=== PATIENT | male | born 1975 ===

== ENCOUNTER 2021-12-20 09:26 | Emergency (ER) | payer OTHER, BC, SELFPAY ==
[2021-12-20] VITALS (12 sets, daily range): BP systolic 131–141; BP diastolic 76–84; PULSE 62–74; RESP 16; TEMP 36.3; O2SAT 94–98; BMI 31.9
--- NOTE | 2021-12-20 09:42 | ED_ITS ---
HPI - Fall General Time Seen by Provider: 09:43 Date Seen: 12/20/21 Chief Complaint: Fall/Minor Trauma Stated Complaint: Fell appx 8 feet, hurt back and right side Time Seen by Provider: 12/20/21 09:41 Source: patient and RN notes reviewed Mode of arrival: ambulatory Limitations: no limitations History of Present Illness HPI Narrative: Patient is a 46-year-old male coming into the ER ambulatory of his own accord. Upon my initial interview with him, did ask staff to do an internal TTA which we did observe. 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 He fell off the bed of the truck landing on his right side on the ramp and then down to the ground landing more on his back. He notes his right elbow was swollen when he got home, hurts to move. He is also having pain in his left buttock/hip area with walking. If he tries to bear full weight it hurts on that right side and he gets sharp pain. The pain is not go ing down the leg at all. Does not seem to emanate from the central back. He states he did not hit his head, no loss of consciousness. He is having no headache, no visual changes. No neck pain, no back pain. No difficulty breathing, no shortness of breath, no chest pain or chest wall pain. No abdominal pain. There is no pain in his left extremities. She has maybe a little right shoulder pain. He did take some Tylenol when he got home this morning. It is primarily the elbow and this right buttock/hip pain with ambulation that brought him in. He is not on any blood thinners. He states the right arm felt numb and tingly initially after the injury but that has resolved. complaint: fall Onset (ago): hour(s) Location of injury - extremities: Right: shoulder and elbow Related Data Home Medications Medication Instructions Recorded Confirmed No Known Home Medications 12/20/21 12/20/21 Allergies Allergy/AdvReac Type Severity Reaction Status Date / Time No Known Drug Allergies Allergy Verified 12/20/21 09:39 Review of Systems Status of ROS: Reports: 10 or more systems reviewed and unremarkable except as noted in History and below PFSH PFSH Social History Smoking Status: Never smoker Do you use any of these nicotine containing products: None Second hand tobacco smoke exposure: No How often do you have a drink containing alcohol: monthly or less How often do you have six or more drinks on one occasion: Less than monthly AUDIT-C Alcohol total score: 2 Non-prescribed substance use: denies use service: No Exam Narrative: Exam Narrative: After some of my initial history taking, called nursing staff in to do an internal TTA. Patient was fully disrobed. IA initially assessed him to have a GCS 15/15, went on with my a history taking as well as into the secondary survey. Patient was able to fully extend his arms up over his head to take off his T-shirt. He did have difficulty attempting to try to untie issues as bending forward bothered him in this right buttock/pelvic area. He was able to stand. Const: Vital Signs, click to edit/add: Vital Signs - 24 hr 12/20/21 09:36 Temperature 97.4 F L Pulse Rate [Left P ulse Oximeter] 74 Respiratory Rate 16 Blood Pressure [Ri ght Upper Arm] 131/84 Pulse Oximetry 96 Oxygen Delivery Me thod Room Air Documenting provider has reviewed patient's vital signs: yes Common normals: no apparent distress, average body habitus, oriented x3, no limitations, healthy appearing and alert General appearance: cooperative, comfortable (Except did seem to have some discomfort in attempting to take his shoes off) and well kempt HENMT: Common normals: normocephalic, head/scalp atraumatic, hearing grossly normal bilaterally, external ears normal, external nose normal, nasal mucous membranes and turbinates normal, moist oral mucous membranes, oropharynx normal, dentition normal and gingiva normal Head and scalp: normocephalic and atraumatic Nose: external nose normal and nasal mucous membranes and turbi nates normal External ear: external ears normal Eye: Common normals: PERRL, EOMs intact bilaterally, conjunctivae normal and no scleral icterus Conjunctiva: conjunctiva(e) normal Pupil: PERRL Neck & C-Spine: Common normals: full ROM (No midline cervical spine tenderness, no paraspinous tenderness), no lymphadenopathy, supple, no meningeal signs, no JVD, thyroid normal and no carotid bruits Thyroid: thyroid normal Chest: Common normals: inspection of chest normal and palpation of chest normal Other: Initially in his history stated he was having no chest wall pain. However, when I was examining his right shoulder did start to complain of some right anterior chest wall pain after the fact. Repalpated the area and he stated there was a little discomfort. There is no crepitus no step-off, no visible bruising or skin changes. Resp: Common normals: normal respiratory effort, no retractions, no use of accessory muscles and clear to auscultation bilaterally Auscultation: clear to auscultation bilaterally Cardio: Common normals: no JVD, regular rate, regular rhythm, S1 normal heart sound, S2 normal heart sound, no gallops, no clicks and no murmurs Rate: regular rate Rhythm: regular rhythm Heart sounds: S1 normal and S2 normal GI: Common normals: Normal to inspection, nondistended, normoactive bowel sounds present, soft to palpation, non-tender, no hepatosplenomegaly and no masses Palpation: soft and no hepatosplenomegaly : Common normals: no CVA tenderness Bladder/kidney exam: no CVA tenderness Back & Pelvis: Common normals: no CVA tenderness, thoracic and lumbar spine normal to inspection and no thoracic nor lumbar tenderness Extremity: Other: He has no tenderness over the clavicle, no tenderness over the glenohumeral joint on palpation and does have good range of motion of her shoulder although he states it feels a little sore. His right elbow definitely has some edematous changes laterally. He is tender over the lateral epicondyle, maybe some over the olecranon. Still has so good supination pronation and flexion extension of the right elbow although he states it is painful. There is no pain into the forearm, wrist hand and fingers are without any pain on the right side. His right lower extremity is nontender, no visible traumatic changes. There is no pain with internal external rotation of the hip. The greater trochanters nontender. Pain seems to be emanating maybe from the pelvis. Neuro: [place] Coma Scale: document GCS findings Gian coma scale eye opening: Spontaneous (4) [place] coma scale verbal response: Orientated (5) [place] coma scale motor response: Obey commands (6) [place] coma scale total score: 15 Common normals: oriented x3, CN's II-XII intact bilaterally, moves all extremities, no focal motor deficits and no sensory deficits noted Sensorium/orientation: alert Meningeal signs: no meningeal signs Speech: speech normal Psych: Appearance: well kempt Course Course Hospital Course: Patient feels his pain is not out of control at this point, declines any pain management at this time. Discussed that we are going to proceed with right shoulder x-rays, right elbow x-rays, chest x-ray and a pelvis x-ray. He is in agreement with this plan. Will continue to monitor him here. I do not think he requires any blood work. We will guide therapy accordingly pending x-ray results. Reevaluation(s) Reevaluation #1: Reviewed with patient that there are no fracture seen on any of his images. He is happy to hear that. We discussed that there really are not any limitations on his activity. Pain should mediate and guide what he does. He will likely develop some bruising over that right gluteal hip area, likely a contusion there. Same for the elbow. At this time there are no restrictions to his activity. I would recommend icing the painful areas, use Tylenol and ibuprofen as needed for pain control. Time: 11:30 Vital Signs Vital signs: Initial Vital Signs Temperature 97.4 F L 12/20/21 09:36 Temperature Source Temporal Artery Scan 12/20/21 09:36 Pulse Rate 74 12/20/21 09:36 Pulse Rhythm 12/20/21 09:36 Pulse Strength 3+ Normal 12/20/21 09:36 Respiratory Rate 16 12/20/21 09:36 Blood Pressure 131/84 12/20/21 09:36 Blood Pressure Mean 99 12/20/21 09:36 Blood Pressure Position Sitting 12/20/21 09:36 Pulse Oximetry 96 12/20/21 09:36 Oxygen Delivery Method 12/20/21 09:36 Vital Signs Temperature 97.4 F L 12/20/21 09:36 Pulse Rate 74 12/20/21 09:36 Respiratory Rate 16 12/20/21 09:36 Blood Pressure 131/84 12/20/21 09:36 Pulse Oximetry 96 12/20/21 09:36 Oxygen Delivery Method 12/20/21 09:36 Temperature 97.4 F L 12/20/21 09:36 Pulse Rate 74 12/20/21 09:36 Respiratory Rate 16 12/20/21 09:36 Blood Pressure 131/84 12/20/21 09:36 Pulse Oximetry 96 12/20/21 09:36 Oxygen Delivery Method 12/20/21 09:36 MDM - Fall Imaging Data X-ray pelvis: Attestation: I have reviewed the pertinent imaging results. My impression: I see no acute fracture or pathology on my preliminary read. Radiologist's impression: Patient: MILLICENT MIKE Facility:?[facility] Patient ID:?[id number] Site Patient ID:?[id number]. Site :?[id number] Study:?XRay Pelvis -12/20/2021 10:37:33 AM Ordering Physician:?Steve Restrepo Final Report: INDICATION: Trauma. Fall. TECHNIQUE: AP pelvis. FINDINGS: Negative. No fracture, dislocation, erosion, or intrinsic lesion. IMPRESSION: Negative pelvis and hips. Dictated by Steve Palacios MD @ 12/20/2021 11:11:17 AM (Electronic Signature) X-ray right shoulder: Attestation: I have reviewed the pertinent imaging results. My impression: No acute fracture of his right shoulder my preliminary read. Radiologist's impression: Patient: MILLICENT MIKE Facility:?[facility] Patient ID:?[id number] Site Patient ID:?[id number]. Site :?[id number] Study:?XRay Shoulder Right -12/20/2021 10:38:08 AM Ordering Physician:?Steve Restrepo Final Report: INDICATION: Trauma. Fall. Pain. TECHNIQUE: Three views of the right shoulder. FINDINGS: Negative. No fracture, dislocation, erosion, or intrinsic lesion. IMPRESSION: Negative three view right shoulder. Dictated by Steve Palacios MD @ 12/20/2021 11:12:14 AM (Electronic Signature) X-ray right elbow: Attestation: I have reviewed the pertinent imaging results. My impression: I do not visualize any fracture on his right elbow on my preliminary read. Radiologist's impression: Patient: MILLICENT MIKE Facility:?[facility] Patient ID:?[id number] Site Patient ID:?[id number]. Site :?[id number] Study:?XRay Extremity Right elbow-12/20/2021 10:38:48 AM Ordering Physician:?Steve Restrepo Final Report: INDICATION: Trauma. Fall. Pain. TECHNIQUE: Three views of the right elbow. FINDINGS: No acute fracture or dislocation. No erosion or effusion. There may be mild soft tissue swelling about the olecranon. IMPRESSION: Possible soft tissue swelling. The right elbow is otherwise negative. Dictated by Steve Palacios MD @ 12/20/2021 11:13:03 AM (Electronic Signature) Chest x-ray: My impression: I see no acute pathology on my preliminary review of this chest x-ray, await Radiology over-read. Radiologist's impression: Patient: MILLICENT MIKE Facility:?[facility] Patient ID:?[id number] Site Patient ID:?[id number]. Site :?[id number] Study:?XRay Chest -12/20/2021 10:36:55 AM Ordering Physician:?Steve Restrepo Final Report: INDICATION: Trauma. Fall. TECHNIQUE: Two-view chest. FINDINGS: Clear lungs. No pneumothorax. Normal heart size and pulmonary vascularity. The included skeleton is grossly unremarkable. No acute displaced rib or sternal fractures are identified. IMPRESSION: Negative two-view chest x-ray. Dictated by Steve Palacios MD @ 12/20/2021 11:10:34 AM (Electronic Signature) Critical Care Time Critical Care Time Critical Care Time: No Discharge Plan Discharge Clinical Impression: Acute pain of right shoulder, Fall, Contusion of elbow, right, Contusion of hip, right Patient Disposition: Home, Self-Care Condition: Stable Instructions: Contusion in Adults (ED), Shoulder Pain (ED) Additional Instructions: Would recommend ice to the painful areas the next couple days. Can do cycles of 20 minutes on, 10 minutes off. Tylenol and/or ibuprofen as needed for pain control, follow bottle directions for dosing. Activity as tolerated, no restrictions noted at this time. At this time, there are no work limitations from the evaluation we have here today. If you feel your pain is worsening, or having further issues that are not resolving in a timely fashion, need to follow up in clinic. Activity Level: Activity as Tolerated Prescriptions: No Action No Known Home Medications Stand Alone Forms: [place] Info Instructions
--- NOTE | 2021-12-20 09:55 | CRLHL7_ITS ---
For Patients: As a result of the Century Cures Act, medical imaging exams and procedure reports are released immediately into your electronic medical record. You may view this report before your referring provider. If you have questions, please contact your health care provider. INDICATION: Trauma. Fall. Pain. TECHNIQUE: Three views of the right elbow. FINDINGS: No acute fracture or dislocation. No erosion or effusion. There may be mild soft tissue swelling about the olecranon. IMPRESSION: Possible soft tissue swelling. The right elbow is otherwise negative. Dictated by Steve Palacios MD @ 12/20/2021 11:13:03 AM (Electronically Signed)
--- NOTE | 2021-12-20 09:55 | CRLHL7_ITS ---
For Patients: As a result of the Century Cures Act, medical imaging exams and procedure reports are released immediately into your electronic medical record. You may view this report before your referring provider. If you have questions, please contact your health care provider. INDICATION: Trauma. Fall. TECHNIQUE: AP pelvis. FINDINGS: Negative. No fracture, dislocation, erosion, or intrinsic lesion. IMPRESSION: Negative pelvis and hips. Dictated by Steve Palacios MD @ 12/20/2021 11:11:17 AM (Electronically Signed)
--- NOTE | 2021-12-20 09:55 | CRLHL7_ITS ---
For Patients: As a result of the Cures Act, medical imaging exams and procedure reports are released immediately into your electronic medical record. You may view this report before your referring provider. If you have questions, please contact your health care provider. INDICATION: Trauma. Fall. Pain. TECHNIQUE: Three views of the right shoulder. FINDINGS: Negative. No fracture, dislocation, erosion, or intrinsic lesion. IMPRESSION: Negative three view right shoulder. Dictated by Steve Palacios MD @ 12/20/2021 11:12:14 AM (Electronically Signed)
--- NOTE | 2021-12-20 09:55 | CRLHL7_ITS ---
For Patients: As a result of the Century Cures Act, medical imaging exams and procedure reports are released immediately into your electronic medical record. You may view this report before your referring provider. If you have questions, please contact your health care provider. INDICATION: Trauma. Fall. TECHNIQUE: Two-view chest. FINDINGS: Clear lungs. No pneumothorax. Normal heart size and pulmonary vascularity. The included skeleton is grossly unremarkable. No acute displaced rib or sternal fractures are identified. IMPRESSION: Negative two-view chest x-ray. Dictated by Steve Palacios MD @ 12/20/2021 11:10:34 AM (Electronically Signed)
--- OUTSIDE RECORDS SUMMARY | 2021-12-20 10:04 | XMS_ITS | Clinical Summary ---
:1975 Author Organization [facility] [place] [address] Care Team Providers Name Role Phone Pcp, No Primary Care Provider Unavailable Allergies No known active allergies Medications Medication Sig Dispensed Refills Start Date End Date Status polyethylene glycoL Mix 1 scoop (17 g) 510 g 3 11/28/2020 Active (MIRALAX) 17 in liquid then take gram/dose by mouth once daily. powderIndications: Chronic constipation HYDROcodone-acetamin Take 1 Tablet by 8 Tablet 0 09/20/2021 Active ophen (NORCO) 5-325 mouth every 6 hours mg per if needed for Pain. tabletIndications: Max acetaminophen Abscess of dose: 4000 mg in 24 superficial perineal hrs. space Active Problems Problem Noted Date Class 1 obesity due to excess calories without serious comorbidity with 04/02/2020 body mass index (BMI) of 33.0 to 33.9 in adult Chronic pain of right knee 04/02/2020 S/P medial meniscectomy of left knee 04/22/2014 Resolved Problems Problem Noted Date Resolved Date No active medical problems 06/26/2011 04/02/2020 Encounters Date Type Specialty Care Team Description 10/04/2021 Telephone Shantal Weber MD 10/04/2021 Telephone Shantal Weber Results (Ultra sound) MD Gina 10/02/2021 Ancillary Procedure 10/02/2021 Travel 09/25/2021 Office Visit Shantal Weber Consult (Absce ss perineal MD Gina space referred by Dr. Hathaway) 09/25/2021 Travel 09/20/2021 Office Visit Cecelia Hathaway Haylee, Follow Up (Groin pain. DO Had an abscess drained last spring and problem resolved. Went to [place] on 08/30 drove t o [place] and on the way down he started experie ncing groin pain agai n. Pain is becoming more f requent and more painfu l. ) 09/20/2021 Travel from Last 3 Months Immunizations Name Administration Dates Next Due Tdap 03/31/2014 Family History Medical History Relation Name Comments Good Health Father Good Health Mother Relation Name Status Comments Father Mother Social History Tobacco Use Types Packs/Day Years Used Date Former Smoker Smokeless Tobacco: Never Used Tobacco Cessation: Counseling Given: Yes Alcohol Use Standard Drinks/Week Comments Yes 0 (1 standard drink = 0.6 oz pure alcoho l) occasional Alcohol Habits Answer Date Recorded How often do you have a drink containing alcohol? 2-4 times a month 04/02/2020 How many drinks containing alcohol do you have on a Not aske d typical day when you are drinking? How often do you have six or more drinks on one Not asked occasion? 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 Respiratory Rate 14 06/26/2011 1:06 PM CDT Oxygen Saturation 97% 09/25/2021 11:14 AM CDT Inhaled Oxygen Concentration - - Weight 84.2 kg (185 lb 11.2 oz) 09/25/2021 11:14 AM CDT Height 158.8 cm (5' 2.5) 09/25/2021 11:14 AM CDT Body Mass Index 33.42 09/25/2021 11:14 AM CDT Plan of Treatment Health Maintenance Due Date Last Done Comments Hepatitis C screening for age 1101/07[birth year]1993 18-79 Colonoscopy through age 75 01/08/2020 COVID-19 vaccine series (3 - 07/14/2020 05/19/2020, 021 Booster for Pfizer series) Influenza for age 9-49 10/10/2021 Depression screening for age 12+ 09/20/2022 09/20/2021, , 04/02/2020 BMI (ht and wt on same day) for 09/25/2022 09/25/2021, 09/09, age 18+ 04/02/2020, Additional history exists Tetanus booster 03/31/2024 03/31/2014 Lipids for age 45-75 04/02/2025 04/02/2020 Tdap Completed 03/31/2014 Procedures Procedure Name Priority Date/Time Associated Diagnosis Comme nts US SCROTUM WITH Routine 10/02/2021 4:19 PM Abscess of Result s for this DUPLEX CDT superficial perineal procedu re are in space the results section. AEROBIC BACTERIAL Routine 09/20/2021 3:14 PM Abscess of Resu lts for this CULTURE, STAIN CDT superficial perineal proce dure are in space the results section. from Last 3 Months Results US SCROTUM WITH DUPLEX (10/02/2021 4:19 PM CDT) Anatomical Region Laterality Modality SCROTUM, TESTES Ultrasound Specimen (Source) Anatomical Collection Method Collection Time Re ceived Time Location / / Volume Laterality 10/03/2021 4:02 PM CDT Impressions 10/03/2021 4:02 PM CDT Chronic peroneal inflammation with small abscess suspected. Incidental mildly complex left epididyma l head cyst measuring 9 millimeters. Normal testicles. No torsion. No reactiv e hydrocele. Dictated by Erik Amaya MD @ Oct 03 2 022 ??4:02PM (Electronically Signed) ?? Narrative 10/03/2021 4:02 PM CDT For Patients: ??As a result of the Cures Act, medical imaging exams and procedure report s are released immediately into your [facility] medical record. ??You may view this report before your referring provider. ??If you have questions, please contact your health care provider. INDICATION: Perineal abscess COMPARISON: 12/12/2020 TECHNIQUE: Feliz scale imaging was performed of the scrotum. In addition color Doppler and spectral Doppler analysis was performed of the testes. FINDINGS: The testes demonstrate normal arterial a nd venous blood flow on color Doppler and spectral Doppler analysis. The testes have uniform echogenicity with no evidence of a suspicious mass or area of inflamm ation. The right testis measures 3.4 x 2 .7 x 1.7 cm in size and the left testis measures 3.4 x 2.4 x 1.5 cm. A hypoechoic cyst is present within the left epididymis measuring 7 x 9 x 5 millimeters. The perineal soft tissues are abnormal, as before, with ill-defined area decreased echogenicity throughout the peritoneum. A focal area of complex echotexture noted measuring 1.3 x 1.2 x 0.5 cm may repr esent a small abscess. Increased vascula rity is present throughout the perineum. Procedure Note Erik Amaya MD - 10/03/2021For matting of this note might be different from the original. For Patients: As a result of the ntury Cures Act, medical imaging exams and procedure reports are released immediately into your electronic medical record. You may view this report before your referring provider. If you have questions, please contact [facility] care provider. INDICATION: Perineal abscess COMPARISON: 12/12/2020 TECHNIQUE: Feliz scale imaging was performed of the scrotum. In addition color Doppler and spectral Doppler analysis was performed of the testes. FINDINGS: The testes demonstrate normal arterial a nd venous blood flow on color Doppler and spectral Doppler analysis. The testes have uniform echogenicity with no evidence of a suspicious mass or area of inflammation. The right testis measures 3.4 x 2.7 x 1.7 cm in size and the left testis measures 3.4 x 2.4 x 1.5 cm. A hypoechoic cyst is present within the left epididymis measuring 7 x 9 x 5 millimeters. The perineal soft tissues are abnormal, as before, with ill-defined area decreased echogenicity throughout the peritoneum. A focal area of complex echotexture noted measuring 1.3 x 1.2 x 0.5 cm may represent a small abscess. Increased vascularity is presen t throughout the perineum. IMPRESSION: Chronic peroneal inflammation with small abscess suspected. Incidental mildly complex left epididyma l head cyst measuring 9 millimeters. Normal testicles. No torsion. No reactiv e hydrocele. Dictated by Erik Amaya MD @ Oct 03 2 022 4:02PM (Electronically Signed) Shantal Weber MD (ABNORMAL) AEROBIC BACTERIAL CULTURE, STAIN (09/20/2021 3:14 PM CDT) [facility] Method Time Signature CULTURE RESULT (A) 09/23/2021 [email or web address] 8:53 AM CDT LABORATORY-[facility] CULTURE 1+ Escherichia 09/23/2021 [facility] coli 8:53 AM CDT LAB[facility]ATORY[facility] CULTURE 1+ Klebsiella 09/23/2021 [facility] pneumoniae 8:53 AM CDT LAB[facility]ATORY[facility] GRAM STAIN 3+ PMNs 09/23/2021 [facility] 8:53 AM CDT LABORATORY[facility] GRAM STAIN No organisms 09/23/2021 [facility] seen 8:53 AM CDT LABORATORY[facility] Specimen Anatomical Collection Method Collection Time Receive d Time (Source) Location / / Volume Laterality Other (Other) Non-Blood / 09/20/2021 3:14 PM 09/21/19 3:24 Unknown CDT PM CDT Organism Antibiotic Method Susceptibility Escherichia coli TRIMETHOPRIM/SULF <=02/27: S Escherichia coli AMPICILLIN <=2: S Escherichia coli GENTAMICIN <=1: S Escherichia coli CEFTRIAXONE <=1: S Escherichia coli CEFTAZIDIME <=1: S Escherichia coli LEVOFLOXACIN <=0.12: S Escherichia coli CIPROFLOXACIN <=0.25: S Escherichia coli PIPERACILLIN/TAZO <=4: S Escherichia coli AMPICILLIN/SULBACTAM <=2: S Escherichia coli CEFEPIME <=1: S Escherichia coli TOBRAMYCIN <=1: S Escherichia coli MEROPENEM <=0.25: S Klebsiella pneumoniae TRIMETHOPRIM/SULF <=02/27: S Klebsiella pneumoniae AMPICILLIN R Klebsiella pneumoniae GENTAMICIN <=1: S Klebsiella pneumoniae CEFTRIAXONE <=1: S Klebsiella pneumoniae CEFTAZIDIME <=1: S Klebsiella pneumoniae LEVOFLOXACIN <=0.12: S Klebsiella pneumoniae CIPROFLOXACIN <=0.25: S Klebsiella pneumoniae PIPERACILLIN/TAZO <=4: S Klebsiella pneumoniae AMPICILLIN/SULBACTAM 4: S Klebsiella pneumoniae CEFEPIME <=1: S Klebsiella pneumoniae TOBRAMYCIN <=1: S Klebsiella pneumoniae MEROPENEM <=0.25: S Cecelia Hathaway DO MICROBIOLOGY Performing Organization Address City/State/ZIP Code Phon e Number [facility] [address] [place] [address] LABORATORY-CENTRAL 2000 LABORATORY from Last 3 Months Insurance Payer Benefit Plan / Subscriber ID Effective Dates Phone Addre ss Type Group WC WORK[employer] COMP WC AIG [id number] 2014-Presen [address] [address] [place] [address] BLUE CROSS [employer] OF [id number] 2018-Present [address] [address] [place] [address] (Work) [id number] [employer] Self 1975 [address],Esequiel (Home) [place] [address] Care Teams Inflated Pad Buffer Relationship Specialty Start Date End Date Pcp, No PCP - General 06/26/11 .
== END 2021-12-20 11:38 | disposition home or self-care (01) ==
PROVIDERS: Emergency Provider Family Medicine
DX: S49.91XA Unspecified injury of right shoulder and upper arm, initial encounter (principal); S50.01XA Contusion of right elbow, initial encounter; S70.01XA Contusion of right hip, initial encounter; W17.89XA Other fall from one level to another, initial encounter; Y93.9 Activity, unspecified; Y92.9 Unspecified place or not applicable; Y99.0 Civilian activity done for income or pay
CPT/HCPCS: 71046; 72170; 73030; 73080; 99284; 99291

== ENCOUNTER 2022-05-24 15:30 | Emergency (ER) | payer BC, SELFPAY ==
[2022-05-24] VITALS (34 sets, daily range): BP systolic 100–163; BP diastolic 57–81; PULSE 79–102; RESP 13–21; TEMP 37.1; O2SAT 93–98; BMI 33.8
--- NOTE | 2022-05-24 16:21 | CRLHL7_ITS ---
For Patients: As a result of the Century Cures Act, medical imaging exams and procedure reports are released immediately into your electronic medical record. You may view this report before your referring provider. If you have questions, please contact your health care provider. INDICATION: Perirectal abscess. COMPARISON: None available. TECHNIQUE: CT examination of the abdomen and pelvis was performed with the uneventful intravenous administration of 91 cc of Isovue 370 while 3 mm thick axial sections were obtained from the lung bases through the pubic symphysis. Oral contrast was not administered. Please note that all CT scans at this facility use dose modulation, iterative reconstruction, and/or weight-based dosing when appropriate to reduce radiation dose to as low as reasonably achievable. FINDINGS: In the abdomen, the liver, spleen, pancreas, and adrenals are normal in appearance. The kidneys are normal in appearance. The gallbladder is normal in appearance. The abdominal aorta is normal in caliber with no sign of dilatation. There is no sign of retroperitoneal mass or adenopathy. The stomach, loops of small bowel, and colon in the abdomen are normal in appearance. In the pelvis, the retrocecal appendix reaches the inferior margin of the right lobe of the liver and is normal in appearance with no sign of inflammatory process. The loops of small bowel, colon, and rectum in the pelvis are normal in appearance. There is a lobular fluid collection with bubbles of soft tissue gas in the anterior perineum at the midline, measuring up to 2.7 x 1.9 x 4.8 centimeters. This is located at the base of the penis and is associated with moderate scrotal edema. There is no sign of a hydrocele. The prostate is normal in appearance. The urinary bladder is normal in appearance. There is no sign of pelvic or left inguinal mass or adenopathy. There is mild right inguinal lymphadenopathy with a lymph node with short axis diameter of 1.6 centimeters. This is probably reactive. There is no sign of free air or free fluid in the abdomen or pelvis. The lung bases are clear. The osseous structures are normal in appearance for the patient`s age. IMPRESSION: CT of the pelvis shows an anterior perineal abscess located at the midline at the base of the penis measuring 2.7 x 1.9 x 4.8 centimeters. Moderate scrotal edema. Normal CT of the abdomen with contrast. Please note that all CT scans at this facility use dose modulation, iterative reconstruction, and/or weight-based dosing when appropriate to reduce radiation dose to as low as reasonably achievable. Dictated by Harinder Cowan MD @ 05/24/2022 6:00:49 PM (Electronically Signed)
[2022-05-24 16:37] LABS: Appearance Urine Slightly Cloudy (Clear); Bilirubin Urine Negative (Negative); Blood Urine Negative (Negative); Color Urine Yellow (Yellow); Glucose Urine Negative (Negative); Ketones Urine Negative (Negative); Leukocyte Esterase Urine Negative (Negative); Nitrite Urine Negative (Negative); Protein Urine 1+ (Negative); Specific Gravity Urine >= 1.030 (1.000-1.030); pH Urine 5.5 (5.0-8.5)
[2022-05-24 16:52] LABS: Basophils Percent Auto 0.2 % (0.0-3.0); Eosinophils Percent Auto 0.4 % (0.0-7.0); Hematocrit 45.4 % (37.0-53.0); Hemoglobin* 15.5 gm/dL (13.5-17.5); Immature Granulocytes Pct Auto 0.3 %; Lymphocytes Percent Auto 16.4 % (20-44); Mean Corpuscular HGB Conc 34 gm/dL (32-36); Mean Corpuscular Hemoglobin 32 pg (26-34); Mean Corpuscular Volume 94 fL (80-100); Monocytes Percent Auto 8.5 % (0.0-11.0); Neutrophils Percent Auto 74.2 % (42.0-72.0); Platelet Count* 115 K/uL (140-440); RDW Coefficient of Variation % 13.1 % (11.5-15.5); Red Blood Count 4.85 m/uL (4.30-5.90); White Blood Count* 12.98 K/uL (4.50-11.00)
[2022-05-24 16:59] LABS: Slide Review Reflex No
[2022-05-24 17:03] LABS: RBC Urine 0-2 (0-2); WBC Urine 0-2 (0-5)
[2022-05-24 17:04] LABS: Chloride* 102 mmol/L (96-114); Potassium* 4.1 mmol/L (3.6-5.1); Sodium* 136 mmol/L (135-149)
[2022-05-24 17:07] LABS: Creatinine* 0.8 mg/dL (0.5-1.5); Est. Creatinine Clearance* 88.16; Estimated Glomerular Filt Rate 110 ml/min
[2022-05-24 17:08] LABS: Blood Urea Nitrogen* 14 mg/dL (5-24); Calcium* 9.3 mg/dL (8.4-10.6); Carbon Dioxide* 28 mmol/L (20-32); Glucose* 104 mg/dL (60-115)
[2022-05-24 17:10] LABS: C Reactive Protein* 7.7 mg/dL (0.5-1.0)
[2022-05-24] MEDS: 0.9 % SODIUM CHLORIDE 1000 ml 1,000 ML IV (17:29)
[2022-05-24] MEDS: MORPHINE 2 MG/ML inj IVP (17:29)
[2022-05-24] MEDS: ONDANSETRON 2 MG/ML inj 4 MG IVP (17:29)
[2022-05-24] MEDS: KETOROLAC 30 MG/ML inj IVP (17:29)
--- NOTE | 2022-05-24 17:45 | ED.SKABFB ---
HPI - Skin/Abscess/Foreign Bdy General Date Seen: 05/24/22 Chief complaint: Skin/Abscess/Foreign Body Stated complaint: cyst regrowth, causing pain, headaches Time Seen by Provider: 05/24/22 16:09 Source: patient Mode of arrival: ambulatory Limitations: no limitations History of Present Illness HPI narrative: Patient is a very nice 47-year-old gentleman who presents here with an abscess, he tells me it is back where it was approximately urine half ago, he has noted for the past 3-4 days and increase in swelling between his testicles and his anus, he notes that it was drained here approximately 1.5 years ago. Denies any fevers chills, he thinks this all came on when he was pushing to have a bowel movement 3-4 days ago. Since then he has been urinating okay he has had says too loose stools, but increasing in discomfort. Denies any abdominal pain, nausea vomiting, Related Data Home Medications Medication Instructions Recorded Confirmed No Known Home Medications 12/20/21 12/20/21 Allergies Allergy/AdvReac Type Severity Reaction Status Date / Time No Known Drug Allergies Allergy Verified 12/20/21 09:39 Review of Systems Status of ROS: Reports: 10 or more systems reviewed and unremarkable except as noted in History and below PFSH PFS Social History Smoking Status: Never smoker Do you use any of these nicotine containing products: None Second hand tobacco smoke exposure: No How often do you have a drink containing alcohol: monthly or less How often do you have six or more drinks on one occasion: Less than monthly AUDIT-C Alcohol total score: 2 Non-prescribed substance use: denies use service: No Exam Narrative: Exam Narrative: He is seen in room 7, he appears to be in no distress, chest shows good air entry bilaterally oropharynx is normal, his neck is supple, heart sounds are normal his abdomen is soft and obese there is no guarding no organomegaly he moves all extremities well rectal exam was done, and there is a bit of a fluctuant area between his anus and his scrotum, that is sore, there is a scar from previous surgery, that is well healed, Const: Vital Signs, click to edit/add: Vital Signs - 24 hr 05/24/22 16:07 05/24/22 17:57 05/24/22 18:00 Temperature 98.8 F Pulse Rate 99 98 Pulse Rate [Pulse Oximeter] 102 H Respiratory Rate Blood Pressure Blood Pressure [Ri ght Upper Arm] 163/81 H Pulse Oximetry 97 97 96 Oxygen Delivery Me thod Room Air Oxygen Flow Rate 05/24/22 18:01 05/24/22 18:02 05/24/22 18:15 Temperature Pulse Rate 99 99 97 Pulse Rate [Pulse Oximeter] Respiratory Rate Blood Pressure 118/72 Blood Pressure [Ri ght Upper Arm] Pulse Oximetry 94 96 94 Oxygen Delivery Me thod Oxygen Flow Rate 05/24/22 18:30 05/24/22 18:32 05/24/22 18:45 Temperature Pulse Rate 96 92 93 Pulse Rate [Pulse Oximeter] Respiratory Rate Blood Pressure 104/65 Blood Pressure [Ri ght Upper Arm] Pulse Oximetry 94 95 93 Oxygen Delivery Me thod Oxygen Flow Rate 05/24/22 19:00 05/24/22 19:02 05/24/22 19:15 Temperature Pulse Rate 96 96 93 Pulse Rate [Pulse Oximeter] Respiratory Rate Blood Pressure 112/70 Blood Pressure [Ri ght Upper Arm] Pulse Oximetry 95 94 94 Oxygen Delivery Me thod Oxygen Flow Rate 05/24/22 19:30 05/24/22 19:32 05/24/22 19:45 Temperature Pulse Rate 90 91 90 Pulse Rate [Pulse Oximeter] Respiratory Rate Blood Pressure 107/72 Blood Pressure [Ri ght Upper Arm] Pulse Oximetry 93 95 97 Oxygen Delivery Me thod Oxygen Flow Rate 05/24/22 20:00 05/24/22 20:03 05/24/22 20:12 Temperature Pulse Rate 91 91 91 Pulse Rate [Pulse Oximeter] Respiratory Rate 19 19 21 Blood Pressure 113/77 127/81 Blood Pressure [Ri ght Upper Arm] Pulse Oximetry 94 97 97 Oxygen Delivery Me thod Oxygen Flow Rate 05/24/22 20:15 05/24/22 20:17 05/24/22 20:22 Temperature Pulse Rate 93 91 93 Pulse Rate [Pulse Oximeter] Respiratory Rate 19 16 15 Blood Pressure 108/63 107/59 L Blood Pressure [Ri ght Upper Arm] Pulse Oximetry 96 96 95 Oxygen Delivery Me thod Oxygen Flow Rate 05/24/22 20:27 05/24/22 20:30 05/24/22 20:32 Temperature Pulse Rate 87 86 89 Pulse Rate [Pulse Oximeter] Respiratory Rate 14 19 18 Blood Pressure 104/57 L 105/65 Blood Pressure [Ri ght Upper Arm] Pulse Oximetry 94 98 95 Oxygen Delivery Me thod Oxygen Flow Rate 05/24/22 20:37 05/24/22 20:42 05/24/22 20:45 Temperature Pulse Rate 86 85 86 Pulse Rate [Pulse Oximeter] Respiratory Rate 15 18 16 Blood Pressure 100/68 108/71 Blood Pressure [Ri ght Upper Arm] Pulse Oximetry 97 96 96 Oxygen Delivery Me thod Oxygen Flow Rate 05/24/22 20:47 05/24/22 20:52 05/24/22 20:57 Temperature Pulse Rate 86 80 81 Pulse Rate [Pulse Oximeter] Respiratory Rate 16 13 16 Blood Pressure 107/70 101/57 L 111/68 Blood Pressure [Ri ght Upper Arm] Pulse Oximetry 97 97 97 Oxygen Delivery Me thod Oxygen Flow Rate 05/24/22 21:00 05/24/22 21:02 05/24/22 21:07 Temperature Pulse Rate 82 82 80 Pulse Rate [Pulse Oximeter] Respiratory Rate 15 16 14 Blood Pressure 112/61 103/63 Blood Pressure [Ri ght Upper Arm] Pulse Oximetry 96 96 96 Oxygen Delivery Me thod Oxygen Flow Rate 05/24/22 21:12 05/24/22 19:00 Temperature Pulse Rate 79 Pulse Rate [Pulse Oximeter] Respiratory Rate 14 Blood Pressure 113/63 Blood Pressure [Ri ght Upper Arm] Pulse Oximetry 96 98 Oxygen Delivery Me thod Nasal Cannula Oxygen Flow Rate 4 Documenting provider has reviewed patient's vital signs: yes Course Vital Signs Vital signs: Initial Vital Signs Temperature 98.8 F 05/24/22 16:07 Temperature Source Temporal Artery Scan 05/24/22 16:07 Pulse Rate 102 H 05/24/22 16:07 Blood Pressure 163/81 H 05/24/22 16:07 Blood Pressure Mean 108 05/24/22 16:07 Blood Pressure Position Sitting 05/24/22 16:07 Pulse Oximetry 97 05/24/22 16:07 Oxygen Delivery Method Room Air 05/24/22 16:07 Vital Signs Temperature 98.8 F 05/24/22 16:07 Pulse Rate 102 H 05/24/22 16:07 Blood Pressure 163/81 H 05/24/22 16:07 Pulse Oximetry 97 05/24/22 16:07 Oxygen Delivery Method Room Air 05/24/22 16:07 Temperature 98.8 F 05/24/22 16:07 Pulse Rate 79 05/24/22 21:12 Respiratory Rate 14 05/24/22 21:12 Blood Pressure 113/63 05/24/22 21:12 Pulse Oximetry 96 05/24/22 21:12 Oxygen Delivery Method Nasal Cannula 05/24/22 19:00 Oxygen Flow Rate 4 05/24/22 19:00 MDM - Skin/Abscess/Foreign Bdy MDM Narrative Medical decision making narrative: During this evaluation of this patient I considered multiple differential diagnosis is which included the life-threatening such as appendicitis, aortic aneurysm, mesenteric ischemia, bowel perforation, volvulus, and bowel obstruction. Other differential diagnosis is include but are not limited to cholecystitis, pancreatitis, hepatitis, gastritis, GERD, diverticulitis, peptic ulcer disease, pyelonephritis/UTI, renal colic/stone, testicular torsion as well as other acute scrotal processes, inflammatory bowel disease, as well as other etiologies We will go ahead and do a CT, along with blood test, I was able to review the previous notes by the previous physicians on her old EHR, general surgery was involved, and Dr. Sands is actually on-call today who saw the patient before. Differential Diagnosis Differential diagnosis: Likely abscess of skin or subcutaneous tissue Medical Records Attestation: I reviewed the patient's medical records. Lab Data Attestation: I reviewed the patient's lab results. Labs: Lab Results 05/24/22 05/24/22 Range/Units 16:30 16:40 WBC 12.98 H (4.50-11.00) K/uL RBC 4.85 (4.30-5.90) m/uL Hgb 15.5 (13.5-17.5) gm/dL Hct 45.4 (37.0-53.0) % MCV 94 (80-100) fL MCH 32 (26-34) pg MCHC 34 (32-36) gm/dL RDW Coeff of Em 13.1 (11.5-15.5) % Plt Count 115 L (140-440) K/uL Neut % (Auto) 74.2 H (42.0-72.0) % Lymph % (Auto) 16.4 L (20-44) % Carver % (Auto) 8.5 (0.0-11.0) % Eos % (Auto) 0.4 (0.0-7.0) % Baso % (Auto) 0.2 (0.0-3.0) % Neut # (Auto) 9.60 H (1.7-7.0) K/uL Lymph # (Auto) 2.10 (0.90-2.90) K/uL Carver # (Auto) 1.10 H (0.00-0.90) K/UL Eos # (Auto) 0.10 (0.00-0.50) K/uL Baso # (Auto) 0.00 (0.00-0.30) K/uL Sodium 136 (135-149) mmol/L Potassium 4.1 (3.6-5.1) mmol/L Chloride 102 (96-114) mmol/L Carbon Dioxide 28 (20-32) mmol/L BUN 14 (5-24) mg/dL Creatinine 0.8 (0.5-1.5) mg/dL Estimated Creat Clear 88.16 Estimated GFR 110 ml/min Glucose 104 (60-115) mg/dL Calcium 9.3 (8.4-10.6) mg/dL C-Reactive Protein 7.7 H (0.5-1.0) mg/dL Urine Color Yellow (Yellow) Urine Appearance Slightly Cloudy A (Clear) Urine pH 5.5 (5.0-8.5) Ur Specific [place] >= 1.030 (1.000-1.030) Urine Protein 1+ A (Negative) Urine Glucose (UA) Negative (Negative) Urine Ketones Negative (Negative) Urine Blood Negative (Negative) Urine Nitrite Negative (Negative) Urine Bilirubin Negative (Negative) Urine Urobilinogen 1.0 (0.2-1.0) Ur Leukocyte Esterase Negative (Negative) Urine RBC 0-2 (0-2) Urine WBC 0-2 (0-5) Ur Squamous Epith Cells None (None-Few) Urine Bacteria None (None) Discharge Plan Discharge Clinical Impression: Abscess of skin or subcutaneous tissue Patient Disposition: Home, Self-Care Condition: Stable Instructions: Abscess Incision and Drainage (DC) Additional Instructions: Start Bactrim tonight and take as prescribed. Can use Percocet for severe pain, does contain Tylenol, follow prescription dosing. Can add in ibuprofen per bottle directions as needed for extra pain control or if your pain is not severe. Follow directions as per the surgeon Dr. Reyes. You need to get scheduled for follow-up in clinic, this was stressed by Dr. Reyes. If you develop fever, increasing peroneal pain, feel that the infection is spreading in the perineum, please seek re-evaluation. Activity Level: Activity as Tolerated Prescriptions: No Action No Known Home Medications Follow Up/Referrals: Provider,Not a Local [Primary Care Provider] - Stand Alone Forms: TPACK Info Instructions
[2022-05-24] MEDS: PIPERACILLIN/TAZOBACTAM 3.375 GM in 0.9 % SODIUM CHLORIDE Mini-bag 100 ML IVPB (19:54)
--- NOTE | 2022-05-24 20:43 | W.ANESCHARGE ---
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
--- NOTE | 2022-05-24 20:46 | P.GSCN_ITS ---
History of Present Illness Consult details Date Seen: 05/24/22 Consult date: 05/24/22 Narrative: 47-year-old male presented to emergency room with perineal pain that started on Thursday, and I was asked by Dr. Desouza to see him in consultation. Patient states that he felt a ?bump? at the spot of pain. The pain was getting worse and it was difficult for him to sit and sleep at night. 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 Patient had a similar episode of perineal abscess in December of 2020. Patient denies any fevers. In the emergency room he was found to have an elevated WBC of 13. An abdominal and pelvic CT was obtained that showed a 2.7 x 4.8 cm fluid collection in the anterior perineum at the base of the penis. There was moderate induration surrounding this fluid collection. Review of Systems Narrative: General: no fevers HENT: no problems swallowing CV: no shortness of breath Resp: no cough GI: No nausea, vomiting, abdominal pain : See above Skin: no new rashes Musculoskeletal: no back pain Neuro: no muscle weakness Psyche: no depression, no anxiety PFSH PFSH Social History Smoking Status: Never smoker Do you use any of these nicotine containing products: None Second hand tobacco smoke exposure: No How often do you have a drink containing alcohol: monthly or less How often do you have six or more drinks on one occasion: Less than monthly AUDIT-C Alcohol total score: 2 Non-prescribed substance use: denies use service: No Meds Home Medications and Allergies Home Medications Medication Instructions Recorded Confirmed Type No Known Home Medications 12/20/21 12/20/21 History Allergies Allergy/AdvReac Type Severity Reaction Status Date / Time No Known Drug Allergies Allergy Verified 12/20/21 09:39 Exam Narrative: Exam Narrative: General appearance: Alert, cooperative, and in no distress Pulmonary: Chest symmetric, lungs clear bilaterally Cardiovascular Heart: Regular rate and rhythm, S1, S2, no murmurs/rubs/gallops : The base of the scrotum is somewhat edematous with mild induration palpated at the base of the scrotum and in the median raphe. Patient has tenderness to palpation in the median raphae a but there is no fluctuance noted. There is mild skin erythema noted in the median raphe Psychiatric: Alert, cooperative, normal affect. Const: Vital Signs, click to edit/add: Vital Signs - 24 hr 05/24/22 16:07 05/24/22 17:57 05/24/22 18:00 Temperature 98.8 F Pulse Rate 99 98 Pulse Rate [Pulse Oximeter] 102 H Blood Pressure Blood Pressure [Ri ght Upper Arm] 163/81 H Pulse Oximetry 97 97 96 Oxygen Delivery Me thod Room Air 05/24/22 18:01 05/24/22 18:02 05/24/22 18:15 Temperature Pulse Rate 99 99 97 Pulse Rate [Pulse Oximeter] Blood Pressure 118/72 Blood Pressure [Ri ght Upper Arm] Pulse Oximetry 94 96 94 Oxygen Delivery Me thod 05/24/22 18:30 05/24/22 18:32 05/24/22 18:45 Temperature Pulse Rate 96 92 93 Pulse Rate [Pulse Oximeter] Blood Pressure 104/65 Blood Pressure [Ri ght Upper Arm] Pulse Oximetry 94 95 93 Oxygen Delivery Me thod 05/24/22 19:00 05/24/22 19:02 05/24/22 19:15 Temperature Pulse Rate 96 96 93 Pulse Rate [Pulse Oximeter] Blood Pressure 112/70 Blood Pressure [Ri ght Upper Arm] Pulse Oximetry 95 94 94 Oxygen Delivery Me thod Results Labs Labs: Abnormal lab results 05/24/22 05/24/22 Range/Units 16:30 16:40 WBC 12.98 H (4.50-11.00) K/uL Plt Count 115 L (140-440) K/uL Neut % (Auto) 74.2 H (42.0-72.0) % Lymph % (Auto) 16.4 L (20-44) % Neut # (Auto) 9.60 H (1.7-7.0) K/uL Ward # (Auto) 1.10 H (0.00-0.90) K/UL C-Reactive Protein 7.7 H (0.5-1.0) mg/dL Urine Appearance Slightly Cloudy A (Clear) Urine Protein 1+ A (Negative) Diabetes panel 05/24/22 Range/Units 16:40 Sodium 136 (135-149) mmol/L Potassium 4.1 (3.6-5.1) mmol/L Chloride 102 (96-114) mmol/L Carbon Dioxide 28 (20-32) mmol/L BUN 14 (5-24) mg/dL Creatinine 0.8 (0.5-1.5) mg/dL Glucose 104 (60-115) mg/dL Calcium 9.3 (8.4-10.6) mg/dL Calcium panel 05/24/22 Range/Units 16:40 Calcium 9.3 (8.4-10.6) mg/dL Pituitary panel 05/24/22 Range/Units 16:40 Sodium 136 (135-149) mmol/L Potassium 4.1 (3.6-5.1) mmol/L Chloride 102 (96-114) mmol/L Carbon Dioxide 28 (20-32) mmol/L BUN 14 (5-24) mg/dL Creatinine 0.8 (0.5-1.5) mg/dL Glucose 104 (60-115) mg/dL Calcium 9.3 (8.4-10.6) mg/dL Adrenal panel 05/24/22 Range/Units 16:40 Sodium 136 (135-149) mmol/L Potassium 4.1 (3.6-5.1) mmol/L Chloride 102 (96-114) mmol/L Carbon Dioxide 28 (20-32) mmol/L BUN 14 (5-24) mg/dL Creatinine 0.8 (0.5-1.5) mg/dL Glucose 104 (60-115) mg/dL Calcium 9.3 (8.4-10.6) mg/dL All other labs normal. Assessment and Plan Assessment and plan (1) Abscess of skin or subcutaneous tissue: Status: Acute Plan 47-year-old male presents with recurrent perineal abscess s/p aspiration today in in the emergency room. Patient had aspiration of his abscess in in the emergency room with moderate sedation. The abscess was at least 4 cm deep with only small amount of residual fluid left. Purulent fluid that was aspirated was sent for culture. Patient will be discharged home on antibiotics and follow up with primary care provider to establish care and make sure this is improving. Patient will be given oral pain medication for pain control. Since this is a recurrence, I think would be reasonable to have this patient see urology for evaluation. General Surgery Procedures I/D Type: abscess (Aspiration of perineal abscess.) Site: scrotum Sedation/analgesia: propofol Anesthetic used: with epi Technique: needle aspiration Amount of fluid (mL): 7 Irrigation: No Packing used?: none
== END 2022-05-24 21:15 | disposition home or self-care (01) ==
PROVIDERS: Emergency Provider Family Medicine
DX: L02.215 Cutaneous abscess of perineum (principal)
CPT/HCPCS: 00902; 36415; 74177; 75989; 80048; 81001; 85025; 86140; 87040; 87070; 87186; 96365; 96375; 99140; 99284; J1885; J2270; J2405; J2543; J3490; J7030; Q9967

== ENCOUNTER 2024-02-29 14:16 | Emergency (ER) | payer BC, SELFPAY ==
--- OUTSIDE RECORDS SUMMARY | 2024-02-29 14:18 | XMS_ITS | Clinical Summary ---
Author Organization [facility] Address [place], [place] [address] Care Team Providers Care Imaging Engineer Name Role Phone Cecelia Hathaway DO Primary Care Provider [phone] Allergies No known active allergies Medications polyethylene glycoL (MIRALAX) 17 gram/scoop powderIndication s:Chronic constipation Mix 1 scoop (17 g) in liquid then take by mouth once daily if needed for Constipatio n. 3 Active rosuvastatin (CRESTOR) 10 mg tabletIndication s:Hypertriglycer idemia Take 1 Tablet (10 mg) by mouth at bedtime. 90 Tablet 3 5 Active rosuvastatin (CRESTOR) 5 mg tabletIndication s:Hypertriglycer idemia Take 2 Tablets (10 mg) by mouth at bedtime. 90 Tablet 3 3 02/11/19 25 Discontinue d(Reorder (E-cancel not sent)) amoxicillin-clav ulanate (AUGMENTIN) 875-125 mg tabletIndication s:Non-recurrent acute suppurative otitis media of left ear without spontaneous rupture of tympanic membrane,Other infective acute otitis externa of left ear Take 1 Tablet by mouth every 12 hours for 7 days. 14 Tablet 5 02/18/19 25 Active Problems Problem Noted Date Diagnosed Date Prediabetes 08/20/2022 Class 1 obesity due to exces s calories without serious comorbidity with body mass index (BMI) of 33.0 to 33.9 in adult 04/02/2020 Chronic pain of right knee 04/02/2020 S/P medial meniscectomy of left knee 04/22/2014 Resolved Problems Problem Noted Date Diagnosed Date Resolved Date No active medical problems 06/26/2011 0 04/02/2020 Encounters Date Type Department Care Team Description 02/18/2024 Telephone [facility] [address] [place] [address] Cecelia Hathaway, DO Follow Up 02/12/2024 10:10 AM 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 Denies any pain. Drainage is white without blood); Medication Management (Discuss rosuvastatin) 02/12/2024 Travel from Last 3 Months Immunizations Name Administration Dates Next Due Tdap 03/31/2014 Family History Medical History Relation Name Comments Seizures Brother Good Health Father Good Health Mother Good Health Sister Relation Name Status Comments Brother Father Mother Sister Social History Tobacco Use Types Packs/Day Years Used Date Smoking Tobacco: Former Cigarettes Passive Smoke Exposure: Never Smokeless Tobacco: Never Tobacco Cessation:Counseling Given: Not Answered Comments:Patient was a some day smoker for 20 years and quit 15 years ago in 2007. Alcohol Use Standard Drinks/Week Comments Yes 0 (1 standard drink = 0.6 oz pur e alcohol) occasional PHQ-2 Answer Date Recorded PHQ-2 TOTAL SCORE 0 01/22/2023 Social Connections Answer Date Recorded Do you often feel lonely or isolated from those around you? 0 02/12/2024 Financial Resource Strain Answer Date R ecorded Difficulty of Paying Living Expenses 3 02/12/2024 Difficulty of Paying Living Expenses Not on file 02/12/2024 Food Insecurity Answer Date Recorded Do you worry your food will run out before you are able to buy more? 1 02/12/2024 Transportation Needs Answer Date Record ed Does lack of transportation keep you from medica l appointments? 1 02/12/2024 Does lack of transportation keep you from work, meetings or getting things that you need? 1 02/12/2024 Housing Stability Answer Date Recorded What is your housing situation today? 1 02/12/2024 Utilities Answer Date Recorded Do you have trouble paying f or utilities (for example, heat, electricity, water, phone)? 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 TENDER Gender Identity Not on file Sexual Orientation Not on file Obstetrics History Last Filed Vital Signs Vital Sign Reading Time Taken Comments Blood Pressure 131/82 02/12/2024 10:20 AM INNER LAYER SCRUBBER TENDER Pulse 79 02/12/2024 10:20 AM INNER LAYER SCRUBBER TENDER Temperature 36.7 C (98.1 F) 08/21/2022 3:40 PM CDT Respiratory Rate 18 08/21/2022 3:40 PM CDT Oxygen Saturation 97% 02/12/2024 10:20 AM INNER LAYER SCRUBBER TENDER Inhaled Oxygen Concentration - - Weight 88.5 kg (195 lb) 02/12/2024 10:20 AM INNER LAYER SCRUBBER TENDER Height 158.5 cm (5' 2.4) 08/21/2022 3:40 PM CDT Body Mass Index 35.21 08/21/2022 3:40 PM CDT Plan of Treatment Upcoming Encounters Date Type Department Care Team (Late st Contact Info) Description 05/17/2024 7:40 AM CDT Office Visit [facility] [address] [place] [address] Cecelia Hathaway Haylee, DO [address] [place] [address] Health Maintenance Due Date Last Done Comments Colonoscopy through age 75 01/08/2020 BMI (ht and wt on same day) for age 18+ 08/22/2023 08/21/2022, 09/25/2021, 09/20/2021, Additional history exists COVID-19 vaccine series (2023- season) 2023 05/19/2020, 04/28/2020 Influenza for age 9-49 10/11/2023 Depression screening for age 12+ 01/23/2024 01/22/2023, 09/20/2021, 04/04/2020, Additional history exists Tetanus booster 03/31/2024 03/31/2014 Lipids for age 45-75 09/24/2027 09/23/2022, 09/23/2022, 08/21/2022, Additional history exists Tdap Completed 03/31/2014 HIV for age 15-65 Completed 08/21/2022 Hepatitis C screening for age 18-79 Completed 08/21/2022 Pneumococcal series for age 6-49 Aged Out No longer eligible based on patient's age to complete this topic Procedures Procedure Name Priority Date/Time Associated Diagnosis Comments LIPID PANEL W REFLEX MEASURED LDL Routine 09/23/2022 1:52 PM CDT Mixed hyperlipidemia LC HIV-1/O/2, 4TH GENERATION Routine 08/21/2022 4:11 PM CDT Screening for HIV (human immunodeficiency virus) LC HCV ANTIBODY RFX TO QUANT PCR Routine 08/21/2022 4:11 PM CDT Need for hepatitis C screening test from Last 3 Months or Most Recently Relevant to Health Maintenance Results * (ABNORMAL) LIPID PANEL W REFLEX MEASURED LDL (09/23/2022 1:52 PM CDT) CHOLESTEROL,TOTAL 206(H) 100 - 199 mg/dL 09/24/2022 2:26 AM CDT [facility] Comment: Cholesterol, Total Reference Ranges Desirable <200 mg/dL Borderline 200-239 mg/dL High >=240 mg/dL TRIGLYCERIDES 648(H) <150 mg/dL 09/24/2022 2:26 AM CDT [facility] HDL CHOLESTEROL 28(L) >40 mg/dL 3 2:26 AM CDT [facility] NON-HDL CHOLESTEROL 178(H) <145 mg/dl 09/24/2022 2:26 AM CDT [facility] CHOL/HDL RATIO 7.36(H) <4.50 09/24/2022 2:26 AM CDT [facility] LDL CHOLESTEROL 3 2:26 AM CDT [facility] Comment:Invalid LDL when Tri g >400. VLDL CHOLESTEROL COMMENT 09/24/2022 2:26 AM CDT [facility] Comment:Unable to calculate VLDL. PROVIDER ORDERED STATUS RANDOM 09/24/2022 2:26 AM CDT [facility] Blood BLOOD SPECIMEN / Unknown Venipuncture / Unknown 09/23/2022 1:52 PM CDT 09/23/2022 1:56 PM CDT us Cecelia Haylee Sengjf CHEMISTRY Final Result [facility] [address] [place] [address], [place] * LC HCV ANTIBODY RFX TO QUANT PCR (08/21/2022 4:11 PM CDT) HCV Ab Non Reactive Non Reactive 08/26/2022 4:08 PM CDT [facility] ([facility]) Blood BLOOD SPECIMEN / Unknown Venipuncture / Unknown 08/21/2022 4:11 PM CDT 08/21/2022 4:12 PM CDT Narrative [facility] ([facility]) - 08/26/2022 4:08 PM CDT Performed at: [address] [id number] [employer]: Pb Mtz MD, Phone: [phone] us Forest Friedman MD LABORATORY Final Res ult Performing Organization Address City/[facility]/ZIP Co de Phone Number [facility] ([facility]) [employer] [place] [address], [place] * LC HIV-1/O/2, 4TH GENERATION (08/21/2022 4:11 PM CDT) Pathologist [facility] HIV Scr 4th Gen Non Reactive Non Reactive 08/26/2022 10:06 PM CDT [facility] Comment: HIV Negative HIV-1/HIV-2 antibodies and HIV-1 p24 antigen were NOT detected. There is no laboratory evidence of HIV infection. Blood BLOOD SPECIMEN / Unknown Venipuncture / Unknown 08/21/2022 4:11 PM CDT 08/21/2022 4:12 PM CDT Narrative [facility] ([facility]) - 08/26/2022 10:06 PM CDT Performed at: 01 - [id number] [place], [place] [id number] [employer]: Pb Mtz MD, Phone: [phone] us Forest Friedman MD LABORATORY Final Res ult [facility] [address] [place] [address], from Last 3 Months or Most Recently Relevant to Health Maintenance Insurance [employer] [facility] Care Teams Imaging Engineer Relationship Specialty Start Date End Date Cecelia Hathaway DO [address] [place], [place] [id number] PCP - General Family Practice 06/17/22
[2024-02-29 14:25] VITALS: BP 128/84; PULSE 96; RESP 18; TEMP 36.6; O2SAT 96; BMI 34.8
[2024-02-29 15:32] LABS: PCR FLU A POSITIVE PCR FLU A (Negative); PCR FLU B Negative PCR FLU B (Negative); PCR RSV Negative PCR RSV (Negative); SARS PCR* Negative SARS-CoV-2 (Negative)
--- NOTE | 2024-02-29 16:32 | ED.GENADULT ---
HPI - General Adult General Date Seen: 02/29/24 Chief complaint: Fever Stated complaint: cough, fever, achy bones, chills Time Seen by Provider: 02/29/24 15:35 History of Present Illness HPI narrative: Patient is a 49-year-old male, generally healthy, who presents for evaluation of flu symptoms which started a few days ago. His son was the 1st 1 in the family to get sick about 5 days ago and since then ever 1 has gotten sick. They are all here to be seen together. Patient notes that he was seen a couple of weeks ago for left ear pain and treated with an antibiotic for an ear infection, does not feel that the ear is entirely better. Otherwise he denies any medical history or medications. He notes headaches, body aches, cough and fever. Related Data Previous Rx's ?Medication ?Instructions ?Recorded pimecrolimus 1 % topical cream 1 applic topical 1XD #60 grams 07/01/22 tretinoin 0.025 % topical cream 1 applic topical QHS #45 grams 07/01/22 (Retin-A) ciprofloxacin 0.3 %-dexamethasone 4 drp otic (ear) BID 7 days #7.5 mL 02/29/24 0.1 % ear drops,suspension Allergies Allergy/AdvReac Type Severity Reaction Status Date / Time No Known Drug Allergies Allergy Verified 07/01/22 14:10 [facility] Medical History (Updated 02/29/24 @ 16:03 by Sylvia Cardozo MD) Oily skin ?R23.4 - Changes in skin texture (ICD-10) Eczema ?L30.9 - Dermatitis, unspecified (ICD-10) Social History Smoking Status: Former smoker Do you use any of these nicotine containing products: None Second hand tobacco smoke exposure: No How often do you have a drink containing alcohol: monthly or less How often do you have six or more drinks on one occasion: Less than monthly AUDIT-C Alcohol total score: 2 Non-prescribed substance use: denies use service: No Exam Narrative: Exam Narrative: Vital signs reviewed In general, alert, nontoxic man. Breathing easily. Head: Normocephalic, atraumatic. Eyes: Sclera clear. Pupils equal and reactive. ENT: Mucous membranes moist. The right TM is normal. The left canal is notable for some off-white material in the canal, TM is poorly visualized. Canal is mildly erythematous although not edematous. Neck: Supple without adenopathy. Heart: Regular rate and rhythm without murmur. Lungs: Clear. No increased work of breathing, crackles or wheezes. Neurologic: Alert, conversant. Speech fluent, face symmetric. Moves all extremities equally. Skin: Warm, dry well perfused. Affect: Normal. Const: Vital Signs, click to edit/add: Vital Signs - 24 hr 02/29/24 14:25 Temperature 97.9 F Pulse Rate [Pulse Oximeter] 96 Respiratory Rate 18 Blood Pressure [Ri ght Upper Arm] 128/84 Pulse Oximetry 96 Oxygen Delivery Me thod Room Air Course Course ED Course: For the urine going to give him some Ciprodex drops to treat otitis externa, I have passed him to follow-up with ENT just to make sure that this clears up. Influenza test positive. Natural history of influenza reviewed, Tamiflu risks and benefits reviewed, they will defer this medication. Ibuprofen and/or Tylenol as needed for symptomatic management. Return any time for worsening. See primary care for persistent symptoms. Vital Signs Vital signs: Initial Vital Signs Temperature 97.9 F 02/29/24 14:25 Temperature Source Temporal Artery Scan 02/29/24 14:25 Pulse Rate 96 02/29/24 14:25 Pulse Rhythm Regular 02/29/24 14:25 Respiratory Rate 18 02/29/24 14:25 Blood Pressure 128/84 02/29/24 14:25 Blood Pressure Mean 98 02/29/24 14:25 Blood Pressure Position Sitting 02/29/24 14:25 Pulse Oximetry 96 02/29/24 14:25 Oxygen Delivery Method Room Air 02/29/24 14:25 Vital Signs Temperature 97.9 F 02/29/24 14:25 Pulse Rate 96 02/29/24 14:25 Respiratory Rate 18 02/29/24 14:25 Blood Pressure 128/84 02/29/24 14:25 Pulse Oximetry 96 02/29/24 14:25 Oxygen Delivery Method Room Air 02/29/24 14:25 Temperature 97.9 F 02/29/24 14:25 Pulse Rate 96 02/29/24 14:25 Respiratory Rate 18 02/29/24 14:25 Blood Pressure 128/84 02/29/24 14:25 Pulse Oximetry 96 02/29/24 14:25 Oxygen Delivery Method Room Air 02/29/24 14:25 Medical Decision Making Lab Data Labs: Lab Results 02/29/24 Range/Units 14:25 SARS-CoV-2 (PCR) Negative SARS-CoV-2 (Negative) Influenza Type A (PCR) POSITIVE PCR FLU A A (Negative) Influenza Type B (PCR) Negative PCR FLU B (Negative) RSV (PCR) Negative PCR RSV (Negative) Discharge Plan Discharge Clinical Impression: Influenza Patient Disposition: Home, Self-Care Condition: Stable Instructions: Influenza (ED) Additional Instructions: You can use ibuprofen and/or Tylenol as needed for fevers, headache, body aches etcetera. Cough may persist for a couple of weeks. For worsening respiratory symptoms, return to the ER at any time. Otherwise see primary care for other concerns. Ear drops as prescribed. Would recommend follow-up with ENT ([phone]) to make sure this clears up. Prescriptions: New ciprofloxacin-dexamethasone 0.3-0.1 % drops,suspension 4 drp otic (ear) BID 7 Days Qty: 7.5 0RF No Action pimecrolimus 1 % cream 1 applic topical 1XD Qty: 60 2RF Rx Instructions: apply to your whole face every morning tretinoin [Retin-A] 0.025 % cream 1 applic topical QHS Qty: 45 2RF Rx Instructions: Apply nightly to your T zone Follow Up/Referrals: Provider,Not a Local [Primary Care Provider] - Stand Alone Forms: [facility] Info Instructions
--- OUTSIDE RECORDS SUMMARY | 2024-03-01 00:03 | XMS_ITS | Clinical Summary ---
Author Organization [facility] Address [place], [place] [address] Care Team Providers Care Pitting Machine Operator Name Role Phone Cecelia Hathaway DO Primary Care Provider [phone] Allergies No known active allergies Medications polyethylene [...] Type Department Care Team Description 02/18/2024 Telephone [facility] [address] [place] [address] Cecelia Hathaway, DO Follow Up 02/12/2024 10:10 AM [employer] [employer] [facility] Office Visit [facility] [address] [place] [place] [address] Cecelia Hathaway Haylee, DO Ear Problem (2 [...] on file Legal Sex Male 7:36 AM [employer] Gender Identity Not on file Sexual Orientation Not on file Obstetrics History Last Filed Vital Signs Vital Sign Reading Time Taken Comments Blood Pressure 131/82 02/12/2024 10:20 AM [employer] Pulse 79 02/12/2024 10:20 AM [employer] Temperature 36.7 C (98.1 F) 08/21/2022 3:40 PM CDT Respiratory Rate 18 08/21/2022 3:40 PM CDT Oxygen Saturation 97% 02/12/2024 10:20 AM [employer] Inhaled Oxygen Concentration - - Weight 88.5 kg (195 lb) 02/12/2024 10:20 AM [employer] Height 158.5 cm (5' 2.4) 08/21/2022 3:40 PM CDT Body Mass Index 35.21 08/21/2022 3:40 PM CDT Plan of Treatment Upcoming Encounters Date Type Department Care Team (Late st Contact Info) Description 05/17/2024 7:40 AM CDT Office Visit [facility] [address] [place] [address] Cecelia Hathaway Haylee, DO [address] [place] [address] Health Maintenance Due Date Last Done Comments [...] - 199 mg/dL 09/24/2022 2:26 AM CDT [facility] Comment: Cholesterol, Total Reference Ranges Desirable <200 mg/dL Borderline 200-239 mg/dL High >=240 mg/dL TRIGLYCERIDES 648(H) <150 mg/dL 09/24/2022 2:26 AM CDT [facility] HDL CHOLESTEROL 28(L) >40 mg/dL 3 2:26 AM CDT [facility] NON-HDL CHOLESTEROL 178(H) <145 mg/dl 09/24/2022 2:26 AM CDT [facility] CHOL/HDL RATIO 7.36(H) <4.50 09/24/2022 2:26 AM CDT [facility] LDL CHOLESTEROL 3 2:26 AM CDT [facility] Comment:Invalid LDL when Tri g >400. VLDL CHOLESTEROL COMMENT 09/24/2022 2:26 AM CDT [facility] Comment:Unable to calculate VLDL. PROVIDER ORDERED STATUS RANDOM 09/24/2022 2:26 AM CDT [facility] Blood BLOOD SPECIMEN / Unknown Venipuncture / Unknown 09/23/2022 1:52 PM CDT 09/23/2022 1:56 PM CDT us Cecelia Haylee Sengjf CHEMISTRY Final Result [facility] [address] [place] [address], [place] * LC HCV ANTIBODY RFX TO QUANT PCR (08/21/2022 4:11 PM CDT) HCV Ab Non Reactive Non Reactive 08/26/2022 4:08 PM CDT [facility] ([facility] Blood BLOOD SPECIMEN / Unknown Venipuncture / Unknown 08/21/2022 4:11 PM CDT 08/21/2022 4:12 PM CDT Narrative [facility] ([facility]) - 08/26/2022 4:08 PM CDT Performed at: [address] [id number] Acid Dipper: Pb Mtz MD, Phone: [phone] us Forest Friedman MD LABORATORY Final Res ult Performing Organization Address City/[facility]/ZIP Co de Phone Number [facility] ([facility]) [facility] [place] [address], [place] * LC HIV-1/O/2, 4TH GENERATION (08/21/2022 4:11 PM CDT) Pathologist [facility] HIV Scr 4th Gen Non Reactive Non Reactive 08/26/2022 10:06 PM CDT [facility] ([facility]) Comment: HIV Negative HIV-1/HIV-2 antibodies and HIV-1 p24 antigen were NOT detected. There is no laboratory evidence of HIV infection. Blood BLOOD SPECIMEN / Unknown Venipuncture / Unknown 08/21/2022 4:11 PM CDT 08/21/2022 4:12 PM CDT Narrative [facility] - 08/26/2022 10:06 PM CDT Performed at: 01 [id number] [place], [place] [id number] Acid Dipper: Pb Mtz MD, Phone: [phone] us Forest Friedman MD LABORATORY Final Res ult [facility] [address] [place] [address], from Last 3 Months or Most Recently Relevant to Health Maintenance Insurance [employer] [facility] Care Teams Pitting Machine Operator Relationship Specialty Start Date End Date Cecelia Hathaway DO [address] [place], [place] [id number] PCP - General Family Practice 06/17/22
== END 2024-02-29 17:05 | disposition home or self-care (01) ==
LOC: ED 17:24
PROVIDERS: Emergency Provider Emergency Medicine; PCP Family Medicine
DX: J10.1 Influenza due to other identified influenza virus with other respiratory manifestations (principal)
CPT/HCPCS: 87631; 99283; 99284